=== PATIENT | female | born 1975 | race Caucasian/White ===

== ENCOUNTER 2020-01-26 19:22 | Emergency (ER) | payer OTHER, SELFPAY ==
--- NOTE | ~2020-01-26 | XR_ITS ---
EXAMINATION: XR chest 1V portable EXAM DATE: 01/26/2020 19:53 INDICATION: Elevated blood pressure, dizziness. TECHNIQUE: Portable AP frontal chest x-ray was obtained. Comparison is made to prior examination from 09/09/2013. FINDINGS: The lungs are clear. There are no pleural effusions. The cardiomediastinal silhouette is within normal limits. There is no pneumothorax suspected. The bones and soft tissues are unremarkab le. Possible hiatal hernia. IMPRESSION: No acute cardiopulmonary findings. Reviewed, dictated and finalized at location G. CLIMBING INSTRUCTOR
--- NOTE | ~2020-01-26 | CT_ITS ---
EXAMINATION: CT brain wo con EXAM DATE: 01/26/2020 21:17 INDICATION: Headache. Dizziness. TECHNIQUE: Spiral CT of the head was performed without contrast. Axial, coronal and sagittal images were reviewed. The dose-length product (DLP) for this examination was 605.33 mGy-cm. The exposure w as tailored according to patient size, and iterative reconstruction (ASIR) was used as additional dos e reduction technique. There is no prior study for comparison. FINDINGS: There is no acute intraparenchymal hemorrhage. No evidence of intraparenchymal brain mass lesion. No evidence of acute infarction. There is no mass effect or midline shift. The ventricles are normal in size. There are no extra-axial collections. There are no acute calvarial fractures. T he orbits are unremarkable. Soft tissue is unremarkable. The visualized sinuses and mastoid air eli ls are well aerated. IMPRESSION: Unremarkable head CT examination. Reviewed, dictated and finalized at location G. [employer] POL[employer]ER
[2020-01-26 19:22] VITALS: BP 173/102; PULSE 88; RESP 18; TEMP 36.8; O2SAT 98
--- NOTE | 2020-01-26 19:34 | ECG_ITS ---
Measurements Intervals [place] Rate: 82 P: 4 [place]: 164 QRS: -29 QRSD: 95 T: 13 QT: 390 QTc: 456 Interpretive Statements SINUS RHYTHM POOR R WAVE PROGRESSION, ANTERIOR LEADS BORDERLINE T WAVE ABNORMALITY- INFERIOR LEADS BASELINE ARTIFACT- I, II, III, AVR, AVF, V1 BORDERLINE ECG Electronically Signed On 01-27-2020 6:39:21 [employer]ANCE [employer]ING SUPERVISOR by Isidro Ha D.O.
[2020-01-26 19:46] VITALS: BP 165/107
--- NOTE | 2020-01-26 19:49 | ED.DIZZY ---
HPI - Dizziness General Chief Complaint: Dizziness Stated Complaint: HTN Time Seen by Provider: 01/26/20 19:33 Source: patient Mode of arrival: EMS Limitations: no limitations History of Present Illness HPI Narrative: 44 years old white female came by ambulance from home because of dizziness and not feeling well. Patient work-up this morning and felt dizzy with any movement, gets better at rest lasted for about 20 minutes then resolves completely. Later patient called her family physician explaining what happened to her, and was told to get a blood pressure machine and check her blood pressure. Patient blood pressure was elevated at that time and was advised by her family physician to go to the pharmacy and get clonidine 0.1 mg and take. Patient received the clonidine and subsequently kept checking her blood pressure all day long every 1/2-1 hour. Patient got different kind of readings most of them above normal, called the ambulance and came to the emergency room for evaluation. Currently patient is asymptomatic, denying any headache, nausea, vomiting, chest pain, shortness of breath, fever, chills, exposure to anybody known having COVID-19. Patient denies any history of hypertension. Last family physician visit was 1 months ago without any abnormality. Patient did not refill her thyroid medication for over 2 months Related Data Allergies Allergy/AdvReac Type Severity Reaction Status Date / Time Penicillins Allergy Unknown Verified 05/24/08 12:00 erythromycin base Allergy Verified 12/03/11 17:04 sulfamethoxazole Allergy Verified 12/03/11 17:04 trimethoprim Allergy Verified 12/03/11 17:04 Review of Systems Review of Systems: Narrative: CONSTITUTIONAL: Denies fever, chills, or sweats. EYES: Denies visual changes, redness, or discharge. ENT: Denies rhinorrhea, congestion, sore throat, or otalgia. CARDIOVASCULAR: Denies chest pain, palpitations, or edema. RESPIRATORY: Denies cough or dyspnea. GASTROINTESTINAL: Denies abdominal pain, nausea, vomiting, or diarrhea. GENITOURINARY: Denies dysuria or hematuria. SKIN: Denies rash or itching. MUSCULOSKELETAL: Denies back pain, joint pain, or myalgia. NEUROLOGIC: Denies headache, numbness, or weakness. PSYCHIATRIC: Anxiety PMFSH Past Medical History Medical History (Updated 01/26/20 @ 22:08 by Yamile Ronquillo MD) Hypothyroidism Social History Social History (Updated 01/26/20 @ 19:54 by Yamile Ronquillo MD) Social History: Patient denies smoking, or using drugs. Patient reports drinking occasionally Second hand tobacco smoke exposure: No Exam Narrative: Exam Narrative: General appearance: Well-developed, well-nourished, morbidly obese Skin: Normal color Head: Normocephalic, nontraumatic Eyes: Clear conjunctiva ENT: Oropharynx normal, ears normal, nose normal Neck: Supple, nontender Chest and respiratory: Airway patent, no respiratory distress, no accessory muscle use Heart: Regular rate/rhythm Abdomen: Soft, nontender, no organomegaly, quiet bowel sounds Vascular: Normal peripheral pulses, normal capillary refill. Musculoskeletal: Normal range of motion, nontender back Neurologic: Alert and oriented ?3, [employer] is normal as tested, no gross motor deficit Course Course Emergency Course: Improving Reevaluation(s) Reevaluation #1: Blood pressure is 140/98 right now patient patient feeling much better, after 1 mg of Ativan. Patient did not receive any blood pressure medications. Scheduled to see her family physician in the morning. Patient TSH is very elevated, patient did not take her thyroid medication over 2 months.. Patient received levothyroxine 200 MCG orally prior to discharge Date: 01/26/20
--- NOTE | 2020-01-26 19:50 | PC.NURSE ---
Radiology at bedside
[2020-01-26] MEDS: LORazepam INJ (*CRX) 2 MG/ML VIAL 1 MG IV PUSH (19:58)
[2020-01-26 20:09] LABS: Basophils Absolute Auto 0.1 K/mm3 (0.0-0.1); Eosinophils Absolute Auto 0.2 K/mm3 (0-0.3); Eosinophils Percent Auto 2.9 % (0-4.4); Hematocrit 44.2 % (37.0-47.0); Hemoglobin 14.6 g/dL (12.0-15.0); Immature Granulocyte Absolute 0.07 K/mm3 (0.00-0.031); Lymphocytes Absolute Auto 1.77 K/mm3 (0.9-3.2); Lymphocytes Percent Auto 24.1 % (18.3-44.2); Mean Corpuscular Hemoglobin 28.2 pg (26-34); Mean Corpuscular Volume 85.5 fl (80-100); Mean Platelet Volume 8.9 fl (7.4-10.4); Monocytes Absolute Auto 0.6 K/mm3 (0.1-0.6); Monocytes Percent Auto 7.9 % (2.6-8.5); Neutrophils Absolute Auto 4.6 K/mm3 (1.3-6.7); Neutrophils Percent Auto 63.1 % (45.5-73.1); Platelet Count Result 353 k/mm3 (150-375); Red Blood Count 5.17 M/mm3 (4.2-5.4); Red Cell Distribution Width 14.5 % (11.5-14.5); White Blood Count 7.3 K/mm3 (4.5-10.0)
[2020-01-26 20:22] LABS: Alanine Aminotransferase 22 U/L (4-35); Albumin Level 4.2 g/dL (3.5-5.1); Alkaline Phosphatase 87 U/L (38-126); Anion Gap 10 mmol/L (8-16); Aspartate Amino Transferase 30 U/L (14-36); Bilirubin,Total 0.5 mg/dL (0.2-1.3); Blood Urea Nitrogen 14 mg/dL (7-17); Calcium 9.1 mg/dL (8.4-10.2); Carbon Dioxide 31 mmol/L (22-30); Chloride 97 mmol/L (98-107); Estimated CRCL calculation 90 ml/min; Estimated Glomerular Filt Rate 49; Glucose 113 mg/dL (65-105); Potassium 3.8 mmol/L (3.4-5.0); Sodium 138 mmol/L (137-145)
[2020-01-26 20:29] LABS: NT Pro B Type Natriuretic Pept 55 PG/ML (5-100)
[2020-01-26 20:33] LABS: Troponin I < 0.012 ng/mL (0.000-0.034)
[2020-01-26 20:48] VITALS: BP 158/102; PULSE 96; RESP 22; O2SAT 98
[2020-01-26 20:58] LABS: Thyroid Stimulating Hormone > 100.000 uIU/mL (0.465-4.680)
[2020-01-26 21:00] VITALS: BP 158/102
[2020-01-26 21:03] LABS: Add Urine Microscopic? YES; Appearance Urine Clear (Clear); Bacteria Urine Trace /hpf; Bilirubin Urine Negative (Negative); Blood Urine 1+ (Negative); Color Urine Yellow (Yellow); Glucose Urine UA Negative (Negative); Ketones Urine Negative (Negative); Leukocyte Esterase Ur Negative LEU/UL (Negative); Nitrate Urine Negative (Negative); Protein Urine 3+ mg/dL (Negative); Specific Grav Ur 1.014 (1.001-1.035); Squamous Epithelial Cell Urine Few /hpf (Few); Urobilinogen Urine Negative mg/dL (<2.0)
[2020-01-26] MEDS: ACETAMINOPHEN 325 MG TABLET 650 MG PO (21:31)
[2020-01-26 21:40] VITALS: BP 141/102
[2020-01-26] MEDS: LEVOTHYROXINE SODIUM 100 MCG TABLET 200 MCG PO (22:24)
[2020-01-26 22:25] VITALS: BP 140/98; PULSE 87; RESP 18; O2SAT 98
== END 2020-01-26 22:39 | disposition home or self-care (01) ==
PROVIDERS: Emergency Provider Emergency Medicine; PCP Family Medicine
DX: F43.22 Adjustment disorder with anxiety (principal); N28.9 Disorder of kidney and ureter, unspecified; I10 Essential (primary) hypertension; E03.9 Hypothyroidism, unspecified; Z91.14 Patient's other noncompliance with medication regimen; R94.31 Abnormal electrocardiogram [ECG] [EKG]
CPT/HCPCS: 36415; 70450; 71045; 80053; 81001; 83880; 84443; 84484; 85025; 93005; 96374; 99284; A9270; J2060